=== PATIENT | male | born 1965 | race Caucasian/White ===

== ENCOUNTER 2018-01-19 10:26 | Emergency (ER) | payer OTHER ==
[~2018-01-19] VITALS: Ht 177.8 cm; Wt 79.4 kg
[2018-01-19 10:35] VITALS: BP 185/102
[2018-01-19] MEDS ORDERED: CIPRO HC OTIC S10 ML OTIC ×2 (11:08→11:12)
== END 2018-01-19 11:17 | disposition home or self-care (01) ==
LOC: ER 10:26
DX: H66.91 Otitis media, unspecified, right ear (principal); H61.21 Impacted cerumen, right ear